=== PATIENT | female | born 1965 | race Caucasian/White ===

== ENCOUNTER 2019-09-03 10:05 | Emergency (ER) | payer OTHER, SELFPAY ==
--- NOTE | 2019-09-03 10:07 | DI.CT.S_ITS ---
PROCEDURE: CT HEAD/BRAIN WO CON INDICATIONS: severe rt eye pain TECHNIQUE: Noncontrast 4.5 mm thick angled axial sections acquired from the foramen magnum to the vertex, with coronal and sagittal reformats. For radiation dose reduction, the following was used: automated exposure control, adjustment of mA and/or kV according to patient size. COMPARISON: None. FINDINGS: Image quality: Excellent. CSF spaces: Basal cisterns are patent. No extra-axial fluid collections. Ventricles are normal in size and shape. Brain: No midline shift. No intracranial masses or hemorrhage. [place]-white matter interface is normal. Skull and face: Calvarium and visualized facial bones are intact, without suspicious lesions. Sinuses: Visualized sinuses and mastoids are clear. IMPRESSION: Normal for age, source of current pain symptoms is not seen. Dictated by: Immanuel Mendez M.D. on 09/03/2019 at 10:36 Approved by: Immanuel Mendez M.D. on 09/03/2019 at 10:37
[2019-09-03 10:08] VITALS: BP 154/75; PULSE 87; RESP 16; TEMP 36.6; O2SAT 99
[2019-09-03 10:47] LABS: Add Manual Diff / Slide Review NO; Basophils Absolute Auto 100 /uL (0-100); Basophils Percent Auto 1.1 % (0-2); Eosinophils Absolute Auto 200 /uL (0-450); Eosinophils Percent Auto 1.6 % (2-4); Hematocrit 50.6 % (36-46); Hemoglobin 17.2 g/dL (12.0-16.0); Lymphocytes Absolute Auto 1900 /uL (1100-4500); Lymphocytes Percent Auto 16.5 % (25-40); Mean Corpuscular HGB Conc 34.1 % (30-36); Mean Corpuscular Hemoglobin 31.7 PG (26-34); Monocytes Absolute Auto 600 /uL (0-900); Monocytes Percent Auto 5.3 % (3-14); Neutrophils Absolute Auto 8900 /uL (1500-7000); Neutrophils Percent Auto 75.5 % (50-75); Platelet Count 408 X10^3/uL (150-400); Red Blood Cell Count 5.44 X10^6/uL (4.0-5.2); Red Cell Distribution Width 13.3 % (11.6-14.8); White Blood Cell Count 11.8 X10^3/uL (4.5-11.0)
[2019-09-03 10:49] LABS: Alanine Aminotransferase 33 IU/L (<35); Albumin 4.8 g/dL (3.5-5.0); Albumin Globulin Ratio 1.2 (1.0-2.8); Alkaline Phosphatase 74 U/L (38-126); Aspartate Aminotransferase 46 IU/L (14-36); BUN Creatinine Ratio 17.5 (6-22); Bilirubin Total 0.6 mg/dL (0.2-1.3); Blood Urea Nitrogen 14 mg/dL (7-17); Calcium 10.1 mg/dL (8.4-10.2); Carbon Dioxide 29 mmol/L (22-32); Chloride 98 mmol/L (98-107); Estimated Glomerular Filt Rate > 60.0 mL/min (>60); Globulin 3.9 g/dL (1.7-4.1); Glucose 223 mg/dL (70-100); HEMOLYSIS 34 (0-50); Potassium 4.2 mmol/L (3.4-5.1); Sodium 140 mmol/L (137-145); Total Protein 8.7 g/dL (6.3-8.2)
[2019-09-03] MEDS: KETOROLAC 60 MG/2 ML VIAL 30 MG IV (11:09)
[2019-09-03] MEDS: diphenhydrAMINE 50 MG/ML VIAL 25 MG IV (11:12)
[2019-09-03] MEDS: methylPREDNISolone 125 MG/2 ML VIAL IV (11:14)
[2019-09-03 11:15] LABS: Erythrocyte Sedimentation Rate 3 MM/HR (0-20)
[2019-09-03] MEDS: METOCLOPRAMIDE 10 MG/2 ML INJ IV (11:16)
--- NOTE | 2019-09-03 12:43 | ED_ITS ---
HPI - Headache General Chief Complaint: Headache Stated Complaint: Severe Headache Time Seen by Provider: 09/03/19 10:24 Mode of arrival: EMS Limitations: no limitations History of Present Illness HPI Narrative: The patient is a 54-year-old female who appears older than her stated age. She states that she woke up this morning with a severe right-sided headache. She states that her right eye hurts as does her right ear. She states it feels like there is an ice-pick stuck in her right side of her head. The pain is constant and not throbbing. She has never been told that she had trigeminal neuralgia . She has had an occasional headache but has never been told that she has also had migraines. She has had no change in vision loss of vision diplopia. She has had no fall or injury. She denies a history of glaucoma. She has had a questionable history of a TIA in the past. Her headache hurts to bite down. She admits to having phonophobia and photophobia. She states that the pain is 8 to 9/10 in intensity. She denies any numbness tingling loss of sensation paresthesias or paralysis. She admits to smoking cigarettes. She denies a history of COPD or stroke but has had coronary artery bypass graft surgery x3 in the past. She admits to hypertension and diabetes mellitus. She denies any shortness of breath cough or chest pain. She has had nausea with vomiting but no diarrhea. Related Data Previous Rx's Medication Instructions Recorded naproxen [Naprosyn] 500 mg PO BID PRN #20 tab 09/03/19 prochlorperazine maleate 10 mg PO Q6H PRN #14 tab 09/03/19 [Compazine] Allergies Allergy/AdvReac Type Severity Reaction Status Date / Time Sulfa (Sulfonamide Allergy Verified 09/03/19 10:07 Antibiotics) Review of Systems Review of Systems ROS Unobtainable: All systems reviewed & are unremarkable except as noted in HPI and below Patient History Social History Smoking Status: Current every day smoker Smoking Status: Current every day smoker Substance Use Type: does not use Exam Narrative Exam Narrative: PHYSICAL EXAM: CONSTITUTIONAL: Awake, Alert, Oriented, Coherent, the patient is rubbing the right side of her head and eye.. HEAD: AT/NC there is tenderness to palpation over the right spiritism. There is no temporomandibular joint tenderness. EENT: PERRL, FROM of eyes, no discharge, no nystagmus. The patient has no restrictions on the movement of her eye but complains of pain on moving the right eye. There is no tenderness over the facial bones right and left maxillary sinuses. No drainage from the ears, Tympanic membranes intact bilaterally, clear EAC No epistaxis or nasal drainage Oral mucosa is moist and pink, posterior pharynx is without erythema or exudate. NECK: Supple, no obvious JVD, Trachea is midline without stridor, no palpable LN or masses. SPINE: No gross deformity, no palpable tenderness of the cervical, thoracic, lumbar or sacral spine. No CVA tenderness. THORAX: No deformity, retractions, chest wall tenderness, subcutaneous air or crepitice. LUNGS: Clear with symmetrical breath sounds without respiratory distress HEART: Normal heart tones, regular rhythm and rate without murmur. ABDOMEN: Soft, non-tender, normal bowel sounds without guarding, rebound, rigidity or palpable mass or organomegaly. EXTREMITIES: No edema, cyanosis, deformity or tenderness. SKIN: No rash, bruising, petechiae or purpura. NEURO: Awake, alert, oriented, conversive, cranial nerves II-XII are symmetrical and normal, moves all 4 extremities and is ambulatory Initial Vital Signs Initial Vital Signs: Vital Signs Temperature 97.8 F 09/03/19 10:08 Pulse Rate 87 09/03/19 10:08 Respiratory Rate 16 09/03/19 10:08 Blood Pressure 154/75 H 09/03/19 10:08 Pulse Oximetry 99 09/03/19 10:08 Course Course Course Narrative: 1243: The patient states that her headache is significantly better but has not completely resolved. Her headache at the present time is 4 to 5/10 in intensity. On arrival it was a 210/10 in intensity. It is now tolerable. She would like to go home and sleep off her headache. He was advised that she needs to follow-up with her primary care physician and keep a log of her headaches. This sounds like a migraine headache but my question is whether not she is developing a form of trigeminal neuralgia. The patient was instructed to keep a log of her headaches. And the descriptive nature of her headaches and how long they lasted in what makes him better or worse. She was treated with migraine cocktail consisting of Toradol, Benadryl, Reglan, and Solu-Medrol. Her CT scan was negative for any acute pathology. Her neurological exam is within normal limits. Orders Ordered: Discontinued Medications Diphenhydramine HCl (Benadryl) 25 mg IV NOW ONE Stop: 09/03/19 10:49 Last Admin: 09/03/19 11:12 Dose: 25 mg Documented by: ADAM Ketorolac Tromethamine (Toradol) 30 mg IV NOW ONE Stop: 09/03/19 10:49 Last Admin: 09/03/19 11:09 Dose: 30 mg Documented by: ADAM Methylprednisolone (Solu-Medrol 125 Mg Vial) 125 mg IV NOW ONE Stop: 09/03/19 10:49 Last Admin: 09/03/19 11:14 Dose: 125 mg Documented by: ADAM Metoclopramide HCl (Reglan) 10 mg IV NOW ONE Stop: 09/03/19 10:49 Last Admin: 09/03/19 11:16 Dose: 10 mg Documented by: ADAM Vital Signs Vital signs: Vital Signs - 8 hr 09/03/19 13:11 Pulse Rate 89 Blood Pressure 149/77 H Pulse Oximetry 96 MDM - Headache Medical Records Attestation: I reviewed the patient's medical records. Lab Data Attestation: I reviewed the patient's lab results. Result diagrams: 09/03/19 10:03 09/03/19 10:03 Labs: Lab Results 09/03/19 09/03/19 09/03/19 Range/Units 10:03 10:03 10:03 WBC 11.8 H (4.5-11.0) X10^3/uL RBC 5.44 H (4.0-5.2) X10^6/uL Hgb 17.2 H (12.0-16.0) g/dL Hct 50.6 H (36-46) % MCV 93.0 (80-100) fL MCH 31.7 (26-34) PG MCHC 34.1 (30-36) % RDW 13.3 (11.6-14.8) % Plt Count 408 H (150-400) X10^3/uL Neut % (Auto) 75.5 H (50-75) % Lymph % (Auto) 16.5 L (25-40) % [place] % (Auto) 5.3 (3-14) % Eos % (Auto) 1.6 L (2-4) % Baso % (Auto) 1.1 (0-2) % Neut # (Auto) 8900 H (9263-2020) /uL Lymph # (Auto) 1900 (7118-8750) /uL [place] # (Auto) 600 (0-900) /uL Eos # (Auto) 200 (0-450) /uL Baso # (Auto) 100 (0-100) /uL ESR 3 (0-20) MM/HR Sodium 140 (137-145) mmol/L Potassium 4.2 (3.4-5.1) mmol/L Chloride 98 (98-107) mmol/L Carbon Dioxide 29 (22-32) mmol/L BUN 14 (7-17) mg/dL Creatinine 0.80 (0.52-1.04) mg/dL Estimated GFR > 60.0 (>60) mL/min BUN/Creatinine Ratio 17.5 (6-22) Glucose 223 H (70-100) mg/dL Calcium 10.1 (8.4-10.2) mg/dL Total Bilirubin 0.6 (0.2-1.3) mg/dL AST 46 H (14-36) IU/L ALT 33 (<35) IU/L Alkaline Phosphatase 74 (38-126) U/L Total Protein 8.7 H (6.3-8.2) g/dL Albumin 4.8 (3.5-5.0) g/dL Globulin 3.9 (1.7-4.1) g/dL Albumin/Globulin Ratio 1.2 (1.0-2.8) Discharge Plan Departure Patient Disposition: Home Clinical Impression: Headache Qualifiers: Headache type: other headache syndrome Qualified Code(s): G44.89 - Other headache syndrome Migraine Qualifiers: Migraine type: unspecified Status migrainosus presence: without status migrainosus Intractability: not intractable Qualified Code(s): G43.909 - Migraine, unspecified, not intractable, without status migrainosus Discharge Date/Time: 09/03/19 13:12 Prescriptions: New naproxen [Naprosyn] 500 mg tablet 500 mg PO BID PRN (Reason: pain) Qty: 20 RF: 0 prochlorperazine maleate [Compazine] 10 mg tablet 10 mg PO Q6H PRN (Reason: nausea and vomiting) Qty: 14 RF: 0
[2019-09-03 13:11] VITALS: BP 149/77; PULSE 89; O2SAT 96
== END 2019-09-03 13:12 | disposition home or self-care (01) ==
PROVIDERS: Emergency Provider Emergency Medicine
DX: G44.89 Other headache syndrome (principal); G43.909 Migraine, unspecified, not intractable, without status migrainosus; H57.11 Ocular pain, right eye
CPT/HCPCS: 70450; 80053; 85025; 85651; 96374; 96375; 99283; 99284; J1200; J1885; J2765; J2930